=== PATIENT | male | born 1995 | race Caucasian/White ===

== ENCOUNTER 2018-12-14 16:17 | Emergency (ER) | payer BC ==
--- NOTE | 2018-12-14 16:27 | ED ---
Substance Abuse/Use - HPI Summary HPI Summary: LEVEL 5 CAVEAT: HPI LIMITED DUE TO PATIENT INTOXICATION This patient 23 year old male brought in by EMS presenting to [facility] with a chief complaint of overdose The patient called for EMS and told them he smoked laced marijuana and that he felt he was dying. EMS gave him 20 mg Versed due to agitated delirium. . - History Of Current Complaint Stated Complaint: POSS OVERDOSE PER POLICE PMH/Surg Hx/FS Hx/Imm Hx - Additional Comments History Additional Comments: LEVEL 5 CAVEAT: PMH LIMITED DUE TO PATIENT INTOXICATION Review of Systems All Other Systems Reviewed And Are Negative: No - Comments Additional Review of Systems Comments: LEVEL 5 CAVEAT: ROS LIMITED DUE TO PATIENT INTOXICATION Physical Exam - Summary Physical Exam Summary: Appearance: The patient is well-nourished in no acute distress and in no acute pain. Skin: The skin is warm and dry and skin color reflects adequate perfusion. HEENT: The head is normocephalic and atraumatic. The pupils are 3-4 and reactive. The conjunctivae are clear and without drainage. Nares are patent and without drainage. Mouth reveals moist mucous membranes and the throat is without erythema and exudate. The external ears are intact. The ear canals are patent and without drainage. The tympanic membranes are intact. Neck: The neck is supple with full range of motion and non-tender. There are no carotid bruits. There is no neck vein distension. Respiratory: Chest is non-tender. Lungs are clear to auscultation and breath sounds are symmetrical and equal. Cardiovascular: Heart is regular rate and rhythm. There is no murmur or rub auscultated. There is no peripheral edema and pulses are symmetrical and equal. Abdomen: The abdomen is soft and non-tender. There are normal bowel sounds heard in all four quadrants and there is no organomegaly palpated. Musculoskeletal: There is no back tenderness noted. Extremities are non-tender with full range of motion. There is good capillary refill. There is no peripheral edema or calf tenderness elicited. Neurological: Patient is alert and oriented to person, place and time. The patient has symmetrical motor strength in all four extremities. Cranial nerves are grossly intact. Deep tendon reflexes are symmetrical and equal in all four extremities. Psychiatric: The patient has an appropriate affect and does not exhibit any anxiety or depression. GCS:14 Triage Information Reviewed: Yes Vital Signs On Initial Exam: HR: 93 BP: 138/71 Vital Signs Reviewed: Yes Diagnostics - Laboratory Result Diagrams: 12/14/18 16:53 12/14/18 16:53 Lab Statement: Any lab studies that have been ordered have been reviewed, and results considered in the medical decision making process. - EKG 1652 Cardiac Rate: Tachycardia EKG Rhythm: Sinus Tachycardia - 104 BPM Ectopy: None Summary of EKG Findings: Early repolarization. Course/Dx - Course Course Of Treatment: Mr. Cuellar came and pretty significantly altered by EMS. He apparently called EMS and complained that he had smoked some marijuana and he was having a bad reaction. He was able to give them some history but was scattered and agitated and they felt that he had an agitated delirium. They called in here after they had initiated an IV and given him 10 of Versed which was helping a little. I okayed given more Versed and by the time they arrived in the ED he was called. He was stuporous at that point and up with difficult to get any history from. He was nontoxic in appearance and his vital signs were stable. Labs were obtained and were unremarkable except for blood sugar of 51 which improved with some chocolate milk. His mother was present in the ED at that point and insisted on taking him home. I'm not sure if hypoglycemia was part of his presentation that he is certainly stable and competent at this time and will discharge him and encouraged follow-up with his PCP. - Diagnoses Provider Diagnoses: Polysubstance overdose Discharge - Sign-Out/Discharge Documenting (check all that apply): Patient Departure - Discharge Patient Received Moderate/Deep Sedation with Procedure: No - Discharge Plan Condition: Stable Disposition: HOME Patient Education Materials: Polysubstance Abuse (ED) Referrals: [facility]ERR[facility] [Outside] Additional Instructions: Return to ED with any new or worsening symptoms. - Billing Disposition and Condition Condition: STABLE Disposition: Home - Attestation Statements Document Initiated by Scribe: Yes Documenting Scribe: Iraj Perez Provider For Whom Thad is Documenting (Include Credential): Carlos Frias MD Scribe Attestation: Iraj Martinez, scribed for Carlos Frias MD on 12/14/18 at 2011. Scribe Documentation Reviewed: Yes Provider Attestation: The documentation as recorded by the Iraj harper accurately reflects the service I personally performed and the decisions made by me, Carlos Frias MD Status of Scribe Document: Viewed
[2018-12-14 17:18] LABS: ABS Basophils 0 10^3/ul (0-0.2); ABS Eosinophils 0.1 10^3/ul (0-0.6); ABS Lymphocytes 1.2 10^3/ul (1.0-4.8); ABS Monocytes 0.9 10^3/ul (0-0.8); ABS Nucleated RBC 0 10^3/ul; ALT 21 U/L (7-52); AST 32 U/L (13-39); Acetaminophen < 15 mcg/mL; Albumin 4.7 g/dL (3.2-5.2); Albumin/Globulin Ratio 1.9 (1-3); Alcohol < 10 mg/dL (<10); Alkaline Phosphatase 75 U/L (34-104); Anion Gap 7 mmol/L (2-11); BUN/Creatinine Ratio 11.8 (8-20); Blood Urea Nitrogen 14 mg/dL (6-24); CO2 Carbon Dioxide 29 mmol/L (22-32); Calcium 9.4 mg/dL (8.6-10.3); Chloride 101 mmol/L (101-111); EGFR African American 92.5 (>60); EGFR Non-African American 76.4 (>60); Eosinophil % 0.9 %; Globulin 2.5 g/dL (2-4); Glucose 52 mg/dL (70-100); Hematocrit 44 % (36-46); Hemoglobin 15.1 g/dL (14.0-18.0); Lymphocyte % 13.4 %; Mean Corpuscular HGB Conc 35 g/dL (31-36); Mean Corpuscular Hemoglobin 31 pg (27-31); Mean Corpuscular Volume 89 fL (80-94); Mean Platelet Volume 8.4 fL (7.4-10.4); Nucleated Red Blood Cells % 0.2; Platelet Count 320 10^3/uL (150-450); Potassium 4.1 mmol/L (3.5-5.0); Red Blood Count 4.92 10^6 /uL (4.18-5.48); Red Cell Distribution Width 14 % (10.5-15); Salicylate < 2.50 mg/dL (<30); Sodium 137 mmol/L (135-145); Total Protein 7.2 g/dL (6.4-8.9); White Blood Count 9.3 10^3/uL (3.5-10.8)
--- OUTSIDE RECORDS SUMMARY | 2018-12-14 17:21 | XMS REPORT ---
:1995 Author Organization [facility] Address [address] [place] [address] Care Team Providers Name Role Phone Victor M Cruz Unavailable Unavailable PROBLEMS Type Condition ICD9-CM Code [id number] Code Onset Condition SNOMED Code Dates Status Problem Type 1 diabetes E10.9 Active 402966397 mellitus without complication Problem Attention deficit F90.2 Active [id number] hyperactivity disorder (ADHD), combined type ALLERGIES No Information ENCOUNTERS Encounter Location Date Diagnosis [place] [address] Dec, [place] [address] [place] [address] Nov, [place] [address] [place] [address] Nov, [place] [address] [place] [address] Nov, [place] [address] hyperactivity disorder (ADHD), combined type F90.2 and Type 1 diabetes mellitus without complication E10.[address] [place] [address] Nov, Type 1 [place] [address] without complication E10.[address] [place] [address] Nov, [place] [address] [place] [address] Nov, Type 1 [place] [address] without complication E10.9 and Diabetes education, encounter for Z71.89 [place] [address] Oct, [place] [address] without foreign body, initial encounter S61.411A [place] [address] Oct, [place] [address] [place] [address] Oct, [place] [address] Oct, [place] [address] [facility] [address] [facility] 04 Oct, 2018 [place] [address] IMMUNIZATIONS No Known Immunizations SOCIAL HISTORY Never Assessed REASON FOR REFERRAL FUNCTIONAL STATUS PLAN OF CARE VITAL SIGNS MEDICATIONS Unknown Medications PROCEDURES No Known procedures RESULTS No Results REASON FOR VISIT Insulin pump request Insurance Providers [facility] Health Member Patient Patient Patient Patient Patient Subscriber Subscriber Subscriber Group Insurance Plan Plan Plan Plan ID Relationship Address Phone Name Date of ID Name Date of No Type Insurance Insurance Insurance Coverage to Subscriber Address Phone Name Dates Blue [phone] Blue self Simone [id number] [place] [id number] 89 Choice Opt [facility] 2 Medical [facility] Medical [address] Case [phone] Case self Simone [id number] Management [place] 02 [facility] [address] [facility] Blue [phone] Blue self Simone [id number] Choice Opt 9255 Attn 83 Choice Opt [facility] GG[address] [place] Claims [id number] [place] Hplex Ch[place] Dept Hplex Chava [facility] [address] Medicaid [phone] Medicaid self Simone [id number] Wrap [facility] 56 Wrap [facility] [address] MEDICAL (GENERAL) HISTORY Type Description Date Medical History type I diabetes - diagnosed at 5 years of age Medical History ADHD
--- OUTSIDE RECORDS SUMMARY | 2018-12-14 17:21 | XMS REPORT ---
:1995 Author Organization [facility] Address [address] [place] [address] Care Team Providers Name Role Phone Victor M Cruz Unavailable Unavailable PROBLEMS Type Condition ICD9-CM Code [id number] Code Onset Condition SNOMED Code Dates Status Problem Type 1 diabetes E10.9 Active 536778241 mellitus without complication ALLERGIES No Known Allergies ENCOUNTERS Encounter Location Date Diagnosis [address] Nov, Type 1 [place] [address] without complication E10.9 and Diabetes education, encounter for Z71.[address] Oct, [place] [address] without foreign body, initial encounter S61.411A [address] Oct, [place] [address] Oct, [place] [address] Oct, [place] [address] Oct, [place] [address] IMMUNIZATIONS No Known Immunizations SOCIAL HISTORY Never Assessed REASON FOR REFERRAL FUNCTIONAL STATUS PLAN OF CARE Activity Details Follow Up 3 months Reason:Dr. Campo, Diabetes follow up Pending Test -MICROALBUMIN,RANDOM URINE (W/CREAT) Pending Test -BASIC METABOLIC PANEL W/EGFR Pending Test -CBC W/ DIFF and PLT Pending Test -LIPID PANEL VITAL SIGNS Temperature 96.7 degrees Fahrenheit 2018-11-27 Heart Rate 20 2018-11-27 Weight 138.1 2018-11-27 Height 62.5 in 2018-11-27 BMI 24.85 kg/m2 2018-11-27 Oximetry 98 % 2018-11-27 Blood pressure systolic 119 mm Hg 2018-11-27 Blood pressure diastolic 50 mm Hg 2018-11-27 MEDICATIONS Medication Instructions Dosage Frequency Start End Duration Status Date Date FreeStyle Lite Active Test - FreeStyle Device BID for as directed 30 day(s) Active Lancets - E11.9 Basaglar Subcutaneous 30 units 30 day(s) Active KwikPen 100 Once daily for UNIT/ML type 1 diabetes NovoLog Subcutaneous TID 1 unit per 10 30 day(s) Active Flexpen 100 for type 1 carbs UNIT/ML diabetes Adderall XR 15 Orally evening 1 cap(s) Active MG FreeStyle Lite Device as as directed 30 day(s) Active - directed for E11.0 Unifine Device TID for USE 30 day(s) Active Pentips 32G X type 1 diabetes DIRECTED WITH 4 MM INSULIN INJECTION FOUR TIMES A DAY Adderall XR 30 Orally Once a 1 cap(s) Active mg day in AM FreeStyle Lite In Vitro BID for as directed 30 day(s) Active Test - E11.9 PROCEDURES Procedure Date Ordered Result Body Site GLYCATED HEMOGLOBIN A1C November 27, 2018 BODY MASS INDEX DOCD November 27, 2018 SMOKING + 2ND HAND ASSESSED November 27, 2018 Oxygen saturation results documented and reviewed November 27, 2018 BLOOD PRESSURE, MEASURED November 27, 2018 RESULTS Name Result Date Reference Range -HbA1c - In House Test 2018-11-27 HbA1c 8.2 REASON FOR VISIT Establish care Type 1 diabetic , A1C. MPT, Offer flu shot, PPSV 23, Hep B series if not up to date. MPT, Pump download, if on pump. MPT, PVP: PHQ2,RHIO, EMILY, SM, Patient is here to establish. Declines immunization states that is up to date on all ommunizations. needs refill on all his prescriptions. Insurance Providers [facility] Health Member Patient Patient Patient Patient Patient Subscriber Subscriber Subscriber Group Insurance Plan Plan Plan Plan ID Relationship Address Phone Name Date of ID Name Date of No Type Insurance Insurance Insurance Coverage to Subscriber Address Phone Name Dates Blue [phone] Blue self Simone [id number] Choice Opt 9255 Attn 83 Choice Opt [place] [place]457 [place] Hplex Ch[place] Dept Hplex Chava [facility] [address] Blue [phone] Blue self Simone [id number] [place] [id number] 89 Choice Opt [facility] 2 Medical [facility] Medical [address] Medicaid [address] [phone] Medicaid self Simone [id number] [facility] 56 Wrap [facility] [address] Case [phone] Case self Simone [id number] Management [place] 02 Management [facility] [address] [place] [address] MEDICAL (GENERAL) HISTORY Type Description Date Medical History type I diabetes - diagnosed at 5 years of age Medical History ADHD
--- OUTSIDE RECORDS SUMMARY | 2018-12-14 17:21 | XMS REPORT ---
:1995 Author Organization [facility] [employer] Care Team Providers Name Role Phone Do Topete Unavailable Unavailable PROBLEMS Type Condition ICD9-CM Code [id number] Code Onset Condition SNOMED Code Dates Status Problem Type 1 diabetes E10.9 Active 768183704 mellitus without complication ALLERGIES No Information ENCOUNTERS Encounter Location Date Diagnosis [place] [address], [place] [address] Nov, [place] [address] Nov, Type 1 [place] [address] without complication E10.9 [place] [address] Nov, [place] [address] [place] [address] Nov, Type 1 [place] [address] without complication E10.9 and Diabetes education, encounter for Z71.[address] Oct, [place] [address] without foreign body, initial encounter S61.411A [address] Oct, [place] [address] Oct, [place] [address] Oct, [place] [address] Oct, [place] [address] IMMUNIZATIONS No Known Immunizations SOCIAL HISTORY Never Assessed REASON FOR REFERRAL FUNCTIONAL STATUS PLAN OF CARE Activity Details Follow Up 4 Weeks Reason: VITAL SIGNS Weight 144.6 2018-12-10 Height 62.5 in 2018-12-10 BMI 26.02 kg/m2 2018-12-10 MEDICATIONS Medication Instructions Dosage Frequency Start End Duration Status Date Date FreeStyle Lite Active Test - Adderall XR 30 Orally Once a 1 cap(s) Active mg day in AM Unifine Device TID for USE 30 day(s) Active Pentips 32G X type 1 diabetes DIRECTED WITH 4 MM INSULIN INJECTION FOUR TIMES A DAY FreeStyle Lite Device as as directed 30 day(s) Active - directed for E11.0 Adderall XR 15 Orally evening 1 cap(s) Active MG FreeStyle Device BID for as directed 30 day(s) Active Lancets - E11.9 FreeStyle Lite In Vitro BID for as directed 30 day(s) Active Test - E11.9 NovoLog Subcutaneous TID 1 unit per 10 30 day(s) Active Flexpen 100 for type 1 carbs UNIT/ML diabetes Basaglar Subcutaneous 30 units 30 day(s) Active KwikPen 100 Once daily for UNIT/ML type 1 diabetes PROCEDURES Procedure Date Ordered Result Body Site Med Nutrition,Init,15 min,Indiv December 10, 2018 BODY MASS INDEX DOCD December 10, 2018 RESULTS No Results REASON FOR VISIT initial medical nutrition therapy visit for type 1 DM Insurance Providers [facility] Health Member Patient Patient Patient Patient Patient Subscriber Subscriber Subscriber Group Insurance Plan Plan Plan Plan ID Relationship Address Phone Name Date of ID Name Date of No Type Insurance Insurance Insurance Coverage to Subscriber Address Phone Name Dates Blue [phone] Blue self Simone [id number] [place] [id number] 89 Choice Opt [place] 2 Medical [facility] Medical [address] Medicaid [address] [phone] Medicaid self Simone [id number] [facility] 56 Wrap [facility] [address] Case [phone] Case self Simone [id number] Management [place] 02 Management [facility] [address] [facility] Blue [phone] Blue self Simone [id number] Choice Opt 9255 Attn 83 Choice Opt [place] [place] GG[place] Hplex Ch[place] Dept Hplex Chava [facility] [address] MEDICAL (GENERAL) HISTORY Type Description Date Medical History type I diabetes - diagnosed at 5 years of age Medical History ADHD
--- OUTSIDE RECORDS SUMMARY | 2018-12-14 17:21 | XMS REPORT ---
:1995 Author Organization [facility] Address [address] [place] [address] Care Team Providers Name Role Phone Victor M Cruz Unavailable Unavailable PROBLEMS Type Condition ICD9-CM Code [id number] Code Onset Condition SNOMED Code Dates Status Problem Type 1 diabetes E10.9 Active 344132358 mellitus without complication ALLERGIES No Information ENCOUNTERS Encounter Location Date Diagnosis [address] Nov, [place] [address] Nov, [place] [address] [place] [address] [place] Nov, [place] [address] Nov, Type 1 [place] [address] without complication E10.9 and Diabetes education, encounter for Z71.[address] Oct, [place] [address] without foreign body, initial encounter S61.411A [address] Oct, [place] [address] Oct, [place] [address] Oct, [place] [address] Oct, [place] [address] IMMUNIZATIONS No Known Immunizations SOCIAL HISTORY Never Assessed REASON FOR REFERRAL FUNCTIONAL STATUS PLAN OF CARE VITAL SIGNS MEDICATIONS Unknown Medications PROCEDURES No Known procedures RESULTS No Results REASON FOR VISIT Information Request Insurance Providers [facility] Health Member Patient Patient Patient Patient Patient Subscriber Subscriber Subscriber Group Insurance Plan Plan Plan Plan ID Relationship Address Phone Name Date of ID Name Date of No Type Insurance Insurance Insurance Coverage to Subscriber Address Phone Name Dates Medicaid [address] [phone] Medicaid self Simone [id number] Wrap [facility] 56 Wrap [facility] [address] Blue [phone] Blue self Simone [id number] [place] [id number] 89 Choice Opt [facility] 2 Medical [facility] Medical [address] Blue [phone] Blue self Simone [id number] Choice Opt 9255 Attn 83 Choice Opt [facility] [address] [place] GG457 [place] Hplex Chava Dept Hplex Chava [facility] [address] Case [phone] Case self Simone [id number] Management [place] 02 Management [facility] [address] [facility] MEDICAL (GENERAL) HISTORY Type Description Date Medical History type I diabetes - diagnosed at 5 years of age Medical History ADHD
--- OUTSIDE RECORDS SUMMARY | 2018-12-14 17:21 | XMS REPORT ---
:1995 Author Organization [facility] Address [address] [place] [address] Care Team Providers Name Role Phone Victor M Cruz Unavailable Unavailable PROBLEMS Type Condition ICD9-CM Code [id number] Code Onset Condition SNOMED Code Dates Status Problem Type 1 diabetes E10.9 Active 772574487 mellitus without complication Problem Attention deficit F90.2 Active 44222857 hyperactivity disorder (ADHD), combined type ALLERGIES No Known Allergies ENCOUNTERS Encounter Location Date Diagnosis [place] [address] Dec, [place] [address] [place] [address] Nov, [place] [address] [place] [address] Nov, [place] [address] [place] [address] Nov, [place] [address] hyperactivity disorder (ADHD), combined type F90.2 and Type 1 diabetes mellitus without complication E10.9 [place] [address] Nov, Type 1 [place] [address] without complication E10.9 [place] [address] Nov, [place] [address] [place] [address] Nov, Type 1 [place] [address] without complication E10.9 and Diabetes education, encounter for Z71.89 [place] [address] Oct, [place] [address] without foreign body, initial encounter S61.411A [place] [address] Oct, [place] [address] [place] [address] Oct, [place] [address] Oct, [place] [address] 04 Oct, 2018 [place] [address] IMMUNIZATIONS No Known Immunizations SOCIAL HISTORY Never Assessed REASON FOR REFERRAL FUNCTIONAL STATUS PLAN OF CARE Activity Details Follow Up 2 Months Reason:Dr. Campo, Diabetes follow up Pending Test -Urine - Qualitative Drug Screen VITAL SIGNS Temperature 97.5 degrees Fahrenheit 2018-12-11 Heart Rate 20 2018-12-11 Weight 143.6 2018-12-11 Height 62.5 in 2018-12-11 BMI 25.84 kg/m2 2018-12-11 Oximetry 100 % 2018-12-11 Blood pressure systolic 120 mm Hg 2018-12-11 Blood pressure diastolic 81 mm Hg 2018-12-11 MEDICATIONS Medication Instructions Dosage Frequency Start End Duration Status Date Date Adderall 15 MG Orally once 1 tablet 24h Nov, 30 day(s) Active daily 2019 FreeStyle Device BID for as directed 30 day(s) Active Lancets - E11.9 FreeStyle Lite Active Test - Unifine Device TID for USE 30 day(s) Active Pentips 32G X type 1 diabetes DIRECTED WITH 4 MM INSULIN INJECTION FOUR TIMES A DAY Adderall XR 30 Orally Once a 1 cap(s) Nov, 30 days Active mg day in AM 2018 NovoLog Subcutaneous TID 1 unit per 10 Active Flexpen 100 for type 1 carbs UNIT/ML diabetes FreeStyle Lite In Vitro BID for as directed 30 day(s) Active Test - E11.9 FreeStyle Lite Device as as directed 30 day(s) Active - directed for E11.0 Basaglar Subcutaneous 30 units Active KwikPen 100 Once daily for UNIT/ML type 1 diabetes PROCEDURES Procedure Date Ordered Result Body Site Drug screen, any number of drug classes from Drug December 11, 2018 Class List A; any number of non-TLC devices or procedures, BODY MASS INDEX DOCD December 11, 2018 SMOKING + 2ND HAND ASSESSED December 11, 2018 Oxygen saturation results documented and reviewed December 11, 2018 BLOOD PRESSURE, MEASURED December 11, 2018 RESULTS No Results REASON FOR VISIT drug test, PVP; I CUp, offer flu,tetanus,hpv vaccines,DRS-NC Offer immunizations. Bettina FANG, OLVIN previous PCP and anyone else who has treated ADHD in past. MPT, Please have patient complete questions before visit: [email or web address] , Check ISTOP ([employer]OOKER). Controlled Rx contract. MPT Insurance Providers [facility] Health Member Patient Patient Patient Patient Patient Subscriber Subscriber Subscriber Group Insurance Plan Plan Plan Plan ID Relationship Address Phone Name Date of ID Name Date of No Type Insurance Insurance Insurance Coverage to Subscriber Address Phone Name Dates Case [phone] Case self Simone [id number] Management [place] 02 Management [facility] [address] [facility] Medicaid [address] [phone] Medicaid self Simone [id number] Wrap [facility] 56 Wrap [facility] [address] Blue [phone] Blue self Simone [id number] Choice Opt 9255 Attn 83 Choice Opt [place]ers GG[address] [place] Claims GG457 [place] Hplex Chava Dept Hplex Chava [facility] [address] Blue [phone] Blue self Simone [id number] [place] [id number] 89 Choice Opt [place] 2 Medical [place] Medical [address] MEDICAL (GENERAL) HISTORY Type Description Date Medical History type I diabetes - diagnosed at 5 years of age Medical History ADHD
--- OUTSIDE RECORDS SUMMARY | 2018-12-14 17:21 | XMS REPORT ---
:1995 Author Organization [facility] Address [address] [place] [address] Care Team Providers Name Role Phone Victor M Cruz Unavailable Unavailable PROBLEMS Type Condition ICD9-CM Code GWS09-[place] Code Onset Condition SNOMED Code Dates Status Problem Type 1 diabetes E10.9 Active 382704958 mellitus without complication Problem Attention deficit F90.2 Active 95775752 hyperactivity disorder (ADHD), combined type ALLERGIES No Information ENCOUNTERS Encounter Location Date Diagnosis [place] [address] Dec, [place] [address] [place] [address] Nov, [place] [address] [place] [address] Nov, [place] [address] [place] [address] Nov, [place] [address] hyperactivity disorder (ADHD), combined type F90.2 and Type 1 diabetes mellitus without complication E10.[address] [place] [address] Nov, Type 1 [place] [address] without complication E10.[address] [place] [address] Nov, [place] [address] [place] [address] Nov, Type 1 [place] [address] without complication E10.9 and Diabetes education, encounter for Z71.[address] [place] [address] Oct, [place] [address] without foreign body, initial encounter S61.411A [place] [address] Oct, [place] [address] [place] [address] Oct, [place] [address] Oct, [place] [address] [place] [id number] [facility] [address] Oct, 2018 [place] [address] IMMUNIZATIONS No Known Immunizations SOCIAL HISTORY Never Assessed REASON FOR REFERRAL FUNCTIONAL STATUS PLAN OF CARE VITAL SIGNS MEDICATIONS Unknown Medications PROCEDURES No Known procedures RESULTS No Results REASON FOR VISIT ISTOP/ [employer] Insurance Providers [facility] Health Member Patient Patient Patient Patient Patient Subscriber Subscriber Subscriber Group Insurance Plan Plan Plan Plan ID Relationship Address Phone Name Date of ID Name Date of No Type Insurance Insurance Insurance Coverage to Subscriber Address Phone Name Dates Medicaid [id number] [phone] Medicaid self Simone [id number] Wrap [facility] [address] [facility] [address] Blue [address] Blue self Simone [id number] [place] [id number] [phone] Choice Opt [place] 2 Medical [facility] Medical [address] Blue [phone] Blue self Simone [id number] Choice Opt 9255 Attn 83 Choice Opt [facility] [address] [place] GG[address] [place] [facility] Hplex Chava [facility] [address] Case [phone] Case self Simone [id number] Management [place] [address] [facility] [address] [facility] MEDICAL (GENERAL) HISTORY Type Description Date Medical History type I diabetes - diagnosed at 5 years of age Medical History ADHD
[2018-12-14 18:47] VITALS: BP 145/81
[2018-12-14 19:10] LABS: Urine Appearance Clear; Urine Bacteria Absent (Absent); Urine Bilirubin Negative (Negative); Urine Blood 1+ (Negative); Urine Color Straw; Urine Glucose 1+(50 mg/dL) (Negative); Urine Ketones Negative (Negative); Urine Nitrite Negative (Negative); Urine Protein Negative (Negative); Urine Red Blood Cell Trace(0-2/hpf) (Absent); Urine Specific Gravity 1.003 (1.010-1.030); Urine Urobilinogen Negative (Negative); Urine White Blood Cell Absent (Absent)
[2018-12-14 19:36] LABS: Barbiturates Urine Screen None Detected (None Detect); Benzodiazepine Urine Screen Presumptive Positive (None Detect); Urine Cannabinoids Screen Presumptive Positive (None Detect)
== END 2018-12-14 18:43 | disposition home or self-care (01) ==
LOC: ED 16:17
DX: T40.7X1A Poisoning by cannabis (derivatives), accidental (unintentional), initial encounter (principal); R00.0 Tachycardia, unspecified; T40.7X5A Adverse effect of cannabis (derivatives), initial encounter; Y92.9 Unspecified place or not applicable
CPT/HCPCS: 36415; 80053; 80307; 80320; 80329; 81003; 81015; 83605; 85025; 93005; 99283; G0480